=== PATIENT | female | born 1955 | race Caucasian/White ===

== ENCOUNTER 2018-05-12 15:16 | Inpatient (IN) | payer OTHER ==
[~2018-05-12] VITALS: Ht 172.7 cm; Wt 68.8 kg
[2018-05-12] MEDS ORDERED: SODIUM CHLORIDE FLUSH 10ML SYR IVF ONE (15:30)
[2018-05-12 15:57] LABS: BASOPHILS # (AUTO) 0.04 x10^3/uL (0-0.1); BASOPHILS % (AUTO) 1 % (0-1); EOSINOPHILS # (AUTO) 0.06 x10^3/uL (0-0.4); EOSINOPHILS % (AUTO) 1 % (1-7); LYMPHOCYTES # (AUTO) 1.69 x10^3/uL (1-3.4); LYMPHOCYTES % (AUTO) 31 % (22-44); MD NO; MEAN CORPUSCULAR HEMOGLOBIN 31.9 pg (27.0-34.8); MEAN CORPUSCULAR HGB CONC 33.2 g/dL (32.4-35.8); MEAN CORPUSCULAR VOLUME 96.2 fL (80-100); MEAN PLATELET VOLUME 8.4 fL (7.4-10.4); MONOCYTES # (AUTO) 0.54 x10^3/uL (0.2-0.8); MONOCYTES % (AUTO) 10 % (2-9); NEUTROPHILS % (AUTO) 58 % (42-75); PLATELET COUNT 188 x10^3/uL (130-400); RED BLOOD COUNT 4.62 x10^6/uL (3.82-5.3); RED CELL DISTRIBUTION WIDTH 11.7 % (9.6-15.2)
[2018-05-12 16:05] LABS: INTERNATIONAL NORMALIZED RATIO 1.05 (0.93-1.1)
[2018-05-12 16:07] LABS: ALANINE AMINOTRANSFERASE 29 U/L (12-78); ALBUMIN 3.7 g/dL (3.4-5.0); ANION GAP 6 mmol/L (5-15); CALCIUM 8.9 mg/dL (8.5-10.1); CHLORIDE 105 mmol/L (98-107); CREATININE 0.76 mg/dL (0.55-1.02)
[2018-05-12 16:11] LABS: ALKALINE PHOSPHATASE 90 U/L (45-117); BILIRUBIN,TOTAL 0.9 mg/dL (0.2-1.0); TOTAL PROTEIN 6.4 g/dL (6.4-8.2); TROPONIN I < 0.015 ng/mL (0.000-0.045)
[2018-05-12] MEDS ORDERED: ATEN25TA PO (16:13)
[2018-05-12] MEDS ORDERED: FURO-93 PO (16:13)
[2018-05-12] MEDS ORDERED: APIX2.5T PO (16:13)
[2018-05-12] MEDS ORDERED: DIGO125T PO (16:13)
--- NOTE | 2018-05-12 17:28 | NUR ---
Provided report to PLACIDO Sarmiento. All questions answered. Pt ready to transport to floor from ED.
--- NOTE | 2018-05-12 17:29 | NUR ---
LATE NOTE ENTRY FOR 1520: Pt presents to ED with c/o left chest pain 7/10 nonradiating, not reproducable, resolved prior to arrival to ED.
[2018-05-12] MEDS ORDERED: ENOXAPARIN 40 MG/0.4 ML SQ SCH (17:30)
[2018-05-12] MEDS ORDERED: SODIUM CHLORIDE FLUSH 10ML SYR IVF PRN (17:30)
[2018-05-12] MEDS ORDERED: ACETAMINOPHEN 325 MG TABLET PO PRN (17:30)
[2018-05-12] MEDS ORDERED: NITROGLYCERIN 0.4 MG BOTTLE (25 TABS) SL PRN (17:30)
--- NOTE | 2018-05-12 17:48 | NUR ---
Pt transfered to floor from ED with ED RN and cardiac technologist. Pt left with all personal belongings.
[2018-05-12 18:23] VITALS: BP 103/67
[2018-05-12 18:46] VITALS: BP 104/65
[2018-05-12] MEDS: ATORVASTATIN 20 MG TABLET PO SCH (20:06)
[2018-05-12] MEDS: METOPROLOL TARTRATE 25 MG TABLET PO SCH (20:07)
[2018-05-12 22:32] LABS: TROPONIN I < 0.015 ng/mL (0.000-0.045)
[2018-05-13 02:38] VITALS: BP 101/64
[2018-05-13] MEDS: ASPIRIN 81 MG TABLET EC PO SCH (05:29)
[2018-05-13 05:43] LABS: CHOLESTEROL, TOTAL 107 mg/dL (140-239); TRIGLYCERIDES 90 mg/dL (50-200); VLDL CHOLESTEROL 18 mg/dL (0-25)
[2018-05-13 05:46] LABS: CHOL/HDL RATIO 3.5; HDL CHOL % 29 % (28-40); HDL CHOLESTEROL (DIRECT) 31 mg/dL (40-60); LDL CHOLESTEROL,CALCULATED 58 mg/dL (54-169); LDL/HDL RATIO 1.9 (0.5-3.0); TROPONIN I < 0.015 ng/mL (0.000-0.045)
[2018-05-13 07:27] VITALS: BP 103/67
[2018-05-13] MEDS: APIXABAN 2.5 MG TABLET PO SCH (08:13)
[2018-05-13] MEDS: DIGOXIN 0.125 MG TABLET PO SCH (08:13)
[2018-05-13] MEDS: METOPROLOL TARTRATE 25 MG TABLET PO SCH ×2 (08:13→20:54)
[2018-05-13] MEDS ORDERED: FUROSEMIDE 20 MG TABLET PO SCH (09:00)
[2018-05-13] MEDS: NICOTINE 14MG/24 HR PATCH.TD24 TD SCH (11:00)
[2018-05-13 13:09] VITALS: BP 105/71
[2018-05-13 18:38] VITALS: BP 122/83
[2018-05-13] MEDS: ATORVASTATIN 20 MG TABLET PO SCH (20:54)
[2018-05-13] MEDS: FUROSEMIDE 20 MG/2 ML IV SCH (20:56)
[2018-05-14 00:56] VITALS: BP 111/73
[2018-05-14] MEDS: ASPIRIN 81 MG TABLET EC PO SCH (05:17)
[2018-05-14 07:44] VITALS: BP 115/81
[2018-05-14] MEDS: FUROSEMIDE 20 MG/2 ML IV SCH ×2 (08:23→08:29)
[2018-05-14] MEDS: APIXABAN 2.5 MG TABLET PO SCH (08:24)
[2018-05-14] MEDS: METOPROLOL TARTRATE 25 MG TABLET PO SCH ×2 (08:25→20:29)
[2018-05-14] MEDS: DIGOXIN 0.125 MG TABLET PO SCH (08:29)
[2018-05-14] MEDS: NICOTINE 14MG/24 HR PATCH.TD24 TD SCH (11:21)
[2018-05-14 14:47] VITALS: BP 105/72
[2018-05-14] MEDS: ATORVASTATIN 20 MG TABLET PO SCH (20:28)
[2018-05-14 21:02] VITALS: BP 110/73
[2018-05-15 00:15] VITALS: BP 102/63
[2018-05-15] MEDS: ASPIRIN 81 MG TABLET EC PO SCH (06:11)
[2018-05-15 06:18] LABS: BASOPHILS # (AUTO) 0.01 x10^3/uL (0-0.1); BASOPHILS % (AUTO) 0 % (0-1); EOSINOPHILS # (AUTO) 0.05 x10^3/uL (0-0.4); EOSINOPHILS % (AUTO) 1 % (1-7); LYMPHOCYTES % (AUTO) 35 % (22-44); MD NO; MEAN CORPUSCULAR HEMOGLOBIN 32.9 pg (27.0-34.8); MEAN CORPUSCULAR HGB CONC 34.6 g/dL (32.4-35.8); MEAN CORPUSCULAR VOLUME 95.1 fL (80-100); MEAN PLATELET VOLUME 8.5 fL (7.4-10.4); MONOCYTES # (AUTO) 0.56 x10^3/uL (0.2-0.8); MONOCYTES % (AUTO) 11 % (2-9); NEUTROPHILS # (AUTO) 2.73 x10^3/uL (1.8-6.8); NEUTROPHILS % (AUTO) 53 % (42-75); PLATELET COUNT 153 x10^3/uL (130-400); RED BLOOD COUNT 4.34 x10^6/uL (3.82-5.3); RED CELL DISTRIBUTION WIDTH 11.8 % (9.6-15.2)
[2018-05-15 06:32] LABS: ALBUMIN 3.3 g/dL (3.4-5.0); ANION GAP 4 mmol/L (5-15); CALCIUM 9.2 mg/dL (8.5-10.1); CHLORIDE 110 mmol/L (98-107); CREATININE 0.54 mg/dL (0.55-1.02)
[2018-05-15 06:52] VITALS: BP 119/82
[2018-05-15] MEDS: APIXABAN 2.5 MG TABLET PO SCH (08:33)
[2018-05-15] MEDS: FUROSEMIDE 20 MG TABLET PO SCH (08:33)
[2018-05-15] MEDS: METOPROLOL TARTRATE 25 MG TABLET PO SCH ×3 (08:33→20:53)
[2018-05-15] MEDS: DIGOXIN 0.125 MG TABLET PO SCH (08:33)
[2018-05-15] MEDS: NICOTINE 14MG/24 HR PATCH.TD24 TD SCH (10:09)
[2018-05-15 12:24] VITALS: BP 125/66
[2018-05-15] MEDS ORDERED: METOPROLOL TARTRATE 25 MG TABLET ONE (13:17)
[2018-05-15 20:00] VITALS: BP 120/75
[2018-05-15] MEDS: ATORVASTATIN 20 MG TABLET PO SCH (20:53)
[2018-05-16 02:00] VITALS: BP 127/85
[2018-05-16] MEDS: ASPIRIN 81 MG TABLET EC PO SCH (05:52)
[2018-05-16 07:35] VITALS: BP 130/81
[2018-05-16] MEDS: FUROSEMIDE 20 MG TABLET PO SCH (09:39)
[2018-05-16] MEDS: DIGOXIN 0.125 MG TABLET PO SCH (09:39)
[2018-05-16] MEDS: METOPROLOL TARTRATE 25 MG TABLET PO SCH (09:40)
[2018-05-16 12:40] LABS: FREE T4 (FREE THYROXINE) 4.81 ng/dL (0.76-1.46)
[2018-05-16 13:55] VITALS: BP 118/82
[2018-05-16] MEDS ORDERED: PROPOFOL 10 MG/ML, 20ML ONE (15:24)
[2018-05-16] MEDS ORDERED: METHIMAZOLE 5 MG TAB PO SCH (16:00)
[2018-05-16] MEDS: SOTALOL 80MG TABLET PO SCH (18:03)
[2018-05-16] MEDS: METHIMAZOLE 5 MG TAB PO SCH (18:04)
[2018-05-16 20:36] VITALS: BP 110/70
[2018-05-16] MEDS: APIXABAN 5 MG TABLET PO SCH (21:11)
[2018-05-16] MEDS: ATORVASTATIN 20 MG TABLET PO SCH (21:11)
[2018-05-17 01:53] VITALS: BP 98/92
[2018-05-17 05:06] VITALS: BP 106/66
[2018-05-17] MEDS: SOTALOL 80MG TABLET PO SCH ×2 (05:07→18:18)
[2018-05-17 07:59] VITALS: BP 98/65
[2018-05-17] MEDS ORDERED: ACETAMINOPHEN 325 MG TABLET PO PRN (10:00)
[2018-05-17 10:40] VITALS: BP 103/73
[2018-05-17] MEDS: APIXABAN 5 MG TABLET PO SCH ×2 (10:42→21:21)
[2018-05-17] MEDS: DIGOXIN 0.125 MG TABLET PO SCH (10:42)
[2018-05-17] MEDS: METHIMAZOLE 5 MG TAB PO SCH (10:43)
[2018-05-17] MEDS ORDERED: MIDAZOLAM 1 MG/ML, 2ML IV ONE (11:30)
[2018-05-17] MEDS ORDERED: FENTANYL PF 100 MCG/2ML IV ONE (11:30)
[2018-05-17 15:08] VITALS: BP 104/68
[2018-05-17] MEDS: ATORVASTATIN 20 MG TABLET PO SCH (21:21)
[2018-05-17 21:28] VITALS: BP 108/75
[2018-05-18 01:02] VITALS: BP 107/69
[2018-05-18 05:35] LABS: BASOPHILS # (AUTO) 0.01 x10^3/uL (0-0.1); BASOPHILS % (AUTO) 0 % (0-1); EOSINOPHILS # (AUTO) 0.08 x10^3/uL (0-0.4); EOSINOPHILS % (AUTO) 2 % (1-7); LYMPHOCYTES # (AUTO) 0.87 x10^3/uL (1-3.4); LYMPHOCYTES % (AUTO) 21 % (22-44); MD NO; MEAN CORPUSCULAR HEMOGLOBIN 31.8 pg (27.0-34.8); MEAN CORPUSCULAR HGB CONC 33.2 g/dL (32.4-35.8); MEAN CORPUSCULAR VOLUME 95.7 fL (80-100); MEAN PLATELET VOLUME 9.1 fL (7.4-10.4); MONOCYTES # (AUTO) 0.56 x10^3/uL (0.2-0.8); MONOCYTES % (AUTO) 14 % (2-9); NEUTROPHILS # (AUTO) 2.54 x10^3/uL (1.8-6.8); NEUTROPHILS % (AUTO) 63 % (42-75); PLATELET COUNT 143 x10^3/uL (130-400); RED BLOOD COUNT 4.34 x10^6/uL (3.82-5.3); RED CELL DISTRIBUTION WIDTH 11.8 % (9.6-15.2)
[2018-05-18 05:40] LABS: CHLORIDE 112 mmol/L (98-107)
[2018-05-18] MEDS: SOTALOL 80MG TABLET PO SCH (05:55)
[2018-05-18 06:01] LABS: ALANINE AMINOTRANSFERASE 28 U/L (12-78); ALBUMIN 3.2 g/dL (3.4-5.0); ALKALINE PHOSPHATASE 80 U/L (45-117); ANION GAP 5 mmol/L (5-15); BILIRUBIN,TOTAL 0.9 mg/dL (0.2-1.0); CALCIUM 9.6 mg/dL (8.5-10.1); CREATININE 0.56 mg/dL (0.55-1.02); TOTAL PROTEIN 5.9 g/dL (6.4-8.2)
[2018-05-18 08:11] VITALS: BP 98/66
[2018-05-18] MEDS ORDERED: FENTANYL PF 100 MCG/2ML ONE (08:22)
[2018-05-18] MEDS ORDERED: MIDAZOLAM 1 MG/ML, 5ML ONE (08:26)
[2018-05-18] MEDS: DIGOXIN 0.125 MG TABLET PO SCH (09:39)
[2018-05-18] MEDS: APIXABAN 5 MG TABLET PO SCH ×2 (09:39→21:49)
[2018-05-18] MEDS: METHIMAZOLE 5 MG TAB PO SCH (09:39)
[2018-05-18 11:24] VITALS: BP 103/64
[2018-05-18] MEDS ORDERED: METOPROLOL TARTRATE 25 MG TABLET PO SCH ×2 (12:00→21:00)
[2018-05-18 17:30] VITALS: BP 103/65
[2018-05-18 19:31] VITALS: BP 98/66
[2018-05-18] MEDS: ATORVASTATIN 20 MG TABLET PO SCH (21:48)
[2018-05-19 01:23] VITALS: BP 107/72
[2018-05-19 06:05] LABS: BASOPHILS # (AUTO) 0.01 x10^3/uL (0-0.1); BASOPHILS % (AUTO) 0 % (0-1); EOSINOPHILS # (AUTO) 0.08 x10^3/uL (0-0.4); EOSINOPHILS % (AUTO) 2 % (1-7); LYMPHOCYTES # (AUTO) 1.16 x10^3/uL (1-3.4); LYMPHOCYTES % (AUTO) 28 % (22-44); MD NO; MEAN CORPUSCULAR HEMOGLOBIN 32.8 pg (27.0-34.8); MEAN CORPUSCULAR HGB CONC 34.4 g/dL (32.4-35.8); MEAN CORPUSCULAR VOLUME 95.3 fL (80-100); MEAN PLATELET VOLUME 9.2 fL (7.4-10.4); MONOCYTES % (AUTO) 12 % (2-9); NEUTROPHILS # (AUTO) 2.37 x10^3/uL (1.8-6.8); NEUTROPHILS % (AUTO) 58 % (42-75); PLATELET COUNT 144 x10^3/uL (130-400); RED BLOOD COUNT 4.18 x10^6/uL (3.82-5.3); RED CELL DISTRIBUTION WIDTH 11.6 % (9.6-15.2)
[2018-05-19 06:17] LABS: CHLORIDE 111 mmol/L (98-107)
[2018-05-19 06:21] LABS: ALANINE AMINOTRANSFERASE 29 U/L (12-78); ALBUMIN 3.1 g/dL (3.4-5.0); ALKALINE PHOSPHATASE 80 U/L (45-117); ANION GAP 3 mmol/L (5-15); BILIRUBIN,TOTAL 0.6 mg/dL (0.2-1.0); CALCIUM 9.4 mg/dL (8.5-10.1); CREATININE 0.52 mg/dL (0.55-1.02); TOTAL PROTEIN 5.8 g/dL (6.4-8.2)
[2018-05-19 07:09] VITALS: BP 128/66
[2018-05-19] MEDS ORDERED: METOPROLOL SUCCINATE 50 MG TAB.ER.24H PO SCH (07:30)
[2018-05-19] MEDS ORDERED: ATOR20TA37 PO (08:45)
[2018-05-19] MEDS ORDERED: METO-93 PO (08:45)
[2018-05-19] MEDS ORDERED: METH5TAB6 PO (08:45)
[2018-05-19] MEDS ORDERED: APIX5TAB PO (08:45)
[2018-05-19] MEDS: APIXABAN 5 MG TABLET PO SCH (09:03)
[2018-05-19] MEDS: METHIMAZOLE 5 MG TAB PO SCH (09:04)
[2018-05-19] MEDS: DIGOXIN 0.125 MG TABLET PO SCH (09:04)
== END 2018-05-19 11:00 | disposition home or self-care (01) | DRG 308 ==
LOC: ED 17:44 → OBSVTOIN 17:45 → INTOOBSV 17:45 → EDIP 17:45 → 5SO 18:05 → DCLOUNGE 05-19 10:43
PROVIDERS: ADMIT Hospitalist; ATTEND Hospitalist
PROC: 5A2204Z Restoration of Cardiac Rhythm, Single (ICD-10-PCS; principal; 2018-05-16 15:30)
PROC: 5A2204Z Restoration of Cardiac Rhythm, Single (ICD-10-PCS; 2018-05-18)
DX: I48.91 Unspecified atrial fibrillation (principal); I50.43 Acute on chronic combined systolic (congestive) and diastolic (congestive) heart failure; D68.69 Other thrombophilia; I20.0 Unstable angina; I42.9 Cardiomyopathy, unspecified; E05.90 Thyrotoxicosis, unspecified without thyrotoxic crisis or storm; F17.200 Nicotine dependence, unspecified, uncomplicated; I07.1 Rheumatic tricuspid insufficiency; I11.0 Hypertensive heart disease with heart failure; I25.2 Old myocardial infarction; I27.20 Pulmonary hypertension, unspecified; J44.9 Chronic obstructive pulmonary disease, unspecified; Z79.01 Long term (current) use of anticoagulants; Z82.49 Family history of ischemic heart disease and other diseases of the circulatory system; Z79.899 Other long term (current) drug therapy
CPT/HCPCS: 36415; 71045; 80048; 80053; 80061; 80162; 82040; 82550; 82552; 83880; 84439; 84443; 84481; 84484; 85025; 85379; 85610; 85730; 93005; 93306; 93312; 93321; 93325; 99285; G0378; J2250; J2704; J3010; J1940